=== PATIENT | female | born 1945 | race Caucasian/White ===

== ENCOUNTER 2021-03-19 15:24 | Emergency (ER) | payer MEDICARE, OTHER, SELFPAY ==
[2021-03-19] MEDS ORDERED: EPINEPHrine 1 MG/10 ML SYR IV ONE (15:25)
[2021-03-19] MEDS ORDERED: AMIODARONE HCL 150 MG/3 ML INJ IV ONE (15:25)
--- NOTE | 2021-03-19 16:14 | EDPHYS ---
Physician Documentation [facility] Name: Ghada Phan Age: 75 yrs Sex: Female : 1945 Arrival Date: 03/19/2021 Time: 15:25 Bed 3 Private MD: ED Physician Joshua Graham HPI: 03/19 16:03 This 75 yrs old Female presents to ER via Unassigned with complaints of CPR. minal 16:03 Preceding the arrest, the patient collapsed, possible seizure. The arrest occurred at [facility] home. Pre-hospital course: The arrest was witnessed Bystanders at the scene did not perform CPR. EMS care prior to arrival: initiation of ACLS, intubation oxygen, backboard, ACLS has been in progress for an unknown time. The patient has not experienced similar symptoms in the past. Historical: - Allergies: 17:02 Bactrim; sv 17:02 Keflex; sv 17:03 PENICILLINS; ss - PMHx: 17:02 Dementia; Hypertension; sv - PSHx: 17:02 Knee surgery; sv - Immunization history:: Adult Immunizations unknown. - Social history:: Smoking status: unknown. - Family history:: not pertinent. ROS: 16:08 Respiratory: Negative for spontaneous respirations. minal 16:08 Unable to obtain ROS due to patient is on ventilator, cpr in progress. Exam: 16:08 Cardiovascular: Rate: actual rate is 0 bpm, Rhythm: PEA/ FINE V FIB, Pulses: not minal palpable, Heart sounds: NONE, Edema: is not appreciated, JVD: is noted bilaterally, to the angle of the jaw. Vital Signs: 15:20 Pulse 0; [place] Coma Score: 15:20 Eye Response: none(1). Verbal Response: none(1). Motor Response: none(1). Total: 3. ss Procedures: 16:16 Central Line: the site was prepped with Betadine, in sterile fashion, a triple lumen minal catheter was inserted, in the right femoral vein, in 2 attempts. placement was verified, by blood return, the site was dressed with Tegaderm, the patient tolerated the procedure, NA, CODE CALLED , LINE REMOVED AND DRESSED. MDM: 15:50 Patient medically screened. minal 16:11 Differential diagnosis: arrythmia, cardiac arrest, respiratory arrest. Data reviewed: [facility] vital signs, nurses notes, EMS record. Data interpreted: clinical research monitor: rate is 0 beats/min, rhythm is pulseless electrical activity. Administered Medications: 15:25 Drug: EPINEPHrine 0.1mg/mL 1:10,000 1 mg Route: IVP; Site: right antecubital; ss 15:30 Follow up: Response: No change in condition ss 15:26 Drug: Sodium Bicarbonate 1 amp Route: IVP; Site: right antecubital; ss 15:30 Follow up: Response: No change in condition ss 15:27 Drug: EPINEPHrine 0.1mg/mL 1:10,000 1 mg Route: IVP; Site: right antecubital; ss 15:30 Follow up: Response: No change in condition ss 15:30 Drug: EPINEPHrine 0.1mg/mL 1:10,000 1 mg Route: IVP; Site: right antecubital; ss 15:35 Follow up: Response: No change in condition ss 15:32 Drug: EPINEPHrine 0.1mg/mL 1:10,000 1 mg Route: IVP; Site: right antecubital; ss 15:45 Follow up: Response: Marked relief of symptoms ss 15:34 Drug: amiodarone 300 mg Route: IVP; Site: right antecubital; ss 15:40 Follow up: Response: No change in condition ss 15:35 Drug: EPINEPHrine 0.1mg/mL 1:10,000 1 mg Route: IVP; Site: right antecubital; ss 15:40 Follow up: Response: No change in condition ss 15:35 Drug: Sodium Bicarbonate 1 amp Route: IVP; Site: right antecubital; ss 15:40 Follow up: Response: No change in condition ss 15:37 Drug: EPINEPHrine 0.1mg/mL 1:10,000 1 mg Route: IVP; Site: right antecubital; ss 15:45 Follow up: Response: No adverse reaction; No change in condition ss 15:39 Drug: EPINEPHrine 0.1mg/mL 1:10,000 1 mg Route: IVP; Site: right antecubital; ss 15:45 Follow up: Response: No change in condition ss Disposition: Patient pronounced on 03/19/21 15:41 by Joshua Graham. Impression: Respiratory arrest. - Released to Home. Signatures: Sarah Swain RN RN Santos, Joshua, Rubina Alcaraz MD, cha, RN RN ss Corrections: (The following items were deleted from the chart) 18:36 16:14 03/19/2021 16:14 Patient pronounced on 03/19/2021 at 15:41 by Joshua Graham. sv Impression: Respiratory arrest. Released to Home. minal
--- NOTE | 2021-03-19 16:14 | ER ---
Nurse's Notes [facility] Name: Ghada Phan Age: 75 yrs Sex: Female : 1945 Arrival Date: 03/19/2021 Time: 15:25 Bed 3 Private MD: Diagnosis: Respiratory arrest Presentation: 03/19 15:20 Acuity: NNEKA 1 sv 15:20 Method Of Arrival: EMS: [facility] ss 15:20 Chief complaint: EMS states: Called to patient's home for possible seizure at 1437. ss Upon arrival, patient was unresponsive with agonal respirations and no pulse, PEA. CPR initiated by EMS personnel at 1444. Care prior to arrival: L humeral IO inserted, NS 0.9% 1000 mL, Epi x 6, sodium bicarb x 2 amps, calcium chloride x2 administered. BGL 111, Oral intubation (ET tube 7.0 20 cm \\T\\ teeth), 16 F NG tube L nare. Compressions began prior to arrival. 15:20 Coronavirus screen: Client denies travel out of the [place] in the last 14 days. Ebola ss Screen: Patient denies travel to an Ebola-affected area in the 21 days before illness onset. Initial Sepsis Screen: Does the patient meet any 2 criteria? No. Patient's initial sepsis screen is negative. Does the patient have a suspected source of infection? No. Patient's initial sepsis screen is negative. Risk Assessment: Do you want to hurt yourself or someone else? Unable to obtain. Onset of symptoms was March 19, 2021. Historical: - Allergies: 17:02 Bactrim; sv 17:02 Keflex; sv 17:03 PENICILLINS; ss - PMHx: 17:02 Dementia; Hypertension; sv - PSHx: 17:02 Knee surgery; sv - Immunization history:: Adult Immunizations unknown. - Social history:: Smoking status: unknown. - Family history:: not pertinent. Screenin:20 Abuse screen: No obvious signs of abuse/ neglect noted. ss Assessment: 15:20 CPR assessment: unresponsive, intubated, Ambu ventilation, pale. Cardiac rhythm is PEA. ss General: Appears distressed, ill, Behavior is unresponsive. Family reported to EMS seizure like activity at home prior to EMS arrival. . Neuro: Level of Consciousness is unresponsive. Cardiovascular: Pulses absent. Respiratory: Airway via oral intubation. GI: Abdomen is non-distended. Derm: Skin is pale, Skin temperature is cool. 15:26 Reassessment: Pulse check" No pulse fine VFIB. DEFRIBRILLATED. CPR resumed. ss 15:28 Reassessment: Pulse check: No pulse. Fine VFIB. DEFIBRILLATED. CPR resumed. ss 15:31 Reassessment: Pulse check: No pulse PEA, CPR resumed. ss 15:32 Reassessment: Pulse check. Fine VFIB. DEFIBRILLATED. CPR resumed. ss 15:34 Reassessment: Pulse check. Fine VFIB. DEFILBRILLATED. CPR resumed. ss 15:36 Reassessment: Pulse check: Fine VFIB. DEFIBRILLATED. CPR resumed. ss 15:37 Reassessment: BGL 91. ss 15:38 Reassessment: Pulse check. Fine Vfib. DEFIBRILLATED. CPR resumed. ss 15:41 Reassessment: No pulse. PEA. Dr. Graham assessing for any signs of life/ pulse, heart ss tones. No signs of life are identified. Time of pronounced. 17:07 Reassessment: I called [facility] and spoke with Ailin Chambers, she stated that she is sv not a candidate for donation. Case #[id number]. Vital Signs: 15:20 Pulse 0; ss [place] Coma Score: 15:20 Eye Response: none(1). Verbal Response: none(1). Motor Response: none(1). Total: 3. ss ED Course: 15:24 Inserted saline lock: 20 gauge in right antecubital area, using aseptic technique. ss 15:25 Patient arrived in ED. ds1 15:50 Joshua Graham MD is Attending Physician. minal 15:50 Police [place] [employer] to page out the national sales manager Vacuum Form Operator/. eb 15:50 Arm band placed on right wrist. ss 15:55 Police [place] [employer] called and asked if they could send out an officer to sit with eb the patient until the air gun operator gets here. 16:04 Sarah Swain, ALEA is Primary Nurse. sv 16:09 Triage completed. sv 16:12 Joshua Graham MD is Pronouncing Provider. minal Administered Medications: 15:25 Drug: EPINEPHrine 0.1mg/mL 1:10,000 1 mg Route: IVP; Site: right antecubital; ss 15:30 Follow up: Response: No change in condition ss 15:26 Drug: Sodium Bicarbonate 1 amp Route: IVP; Site: right antecubital; ss 15:30 Follow up: Response: No change in condition ss 15:27 Drug: EPINEPHrine 0.1mg/mL 1:10,000 1 mg Route: IVP; Site: right antecubital; ss 15:30 Follow up: Response: No change in condition ss 15:30 Drug: EPINEPHrine 0.1mg/mL 1:10,000 1 mg Route: IVP; Site: right antecubital; ss 15:35 Follow up: Response: No change in condition ss 15:32 Drug: EPINEPHrine 0.1mg/mL 1:10,000 1 mg Route: IVP; Site: right antecubital; ss 15:45 Follow up: Response: Marked relief of symptoms ss 15:34 Drug: amiodarone 300 mg Route: IVP; Site: right antecubital; ss 15:40 Follow up: Response: No change in condition ss 15:35 Drug: EPINEPHrine 0.1mg/mL 1:10,000 1 mg Route: IVP; Site: right antecubital; ss 15:40 Follow up: Response: No change in condition ss 15:35 Drug: Sodium Bicarbonate 1 amp Route: IVP; Site: right antecubital; ss 15:40 Follow up: Response: No change in condition ss 15:37 Drug: EPINEPHrine 0.1mg/mL 1:10,000 1 mg Route: IVP; Site: right antecubital; ss 15:45 Follow up: Response: No adverse reaction; No change in condition ss 15:39 Drug: EPINEPHrine 0.1mg/mL 1:10,000 1 mg Route: IVP; Site: right antecubital; ss 15:45 Follow up: Response: No change in condition ss Outcome: 18:36 Patient left the ED. sv Signatures: Sarah Swain RN RN sv Anderson, Corey, MD MD cha Sanford, Demi ds1 Rubina Salvador RN RN ss Marcy Lobo Corrections: (The following items were deleted from the chart) 17:09 15:24 Inserted saline lock: 20 gauge in right antecubital area, using aseptic ss technique. Blood collected. ss
== END 2021-03-19 18:36 | disposition expired ==
LOC: ER 15:24
PROC: 06HT33Z Insertion of Infusion Device into Right Foot Vein, Percutaneous Approach (ICD-10-PCS; principal; 2021-03-19)
PROC: 5A02216 Assistance with Cardiac Output using Other Pump, Continuous (ICD-10-PCS; 2021-03-19)
DX: R09.2 Respiratory arrest (principal); I10 Essential (primary) hypertension; F03.90 Unspecified dementia, unspecified severity, without behavioral disturbance, psychotic disturbance, mood disturbance, and anxiety; Z88.0 Allergy status to penicillin; Z88.1 Allergy status to other antibiotic agents
CPT/HCPCS: 82947; 92950; 96374; 96375; 99291; J0171; J0282